=== PATIENT | female | born 1950 | race African-American/Black ===

== ENCOUNTER 2018-12-22 13:57 | Emergency (ER) | payer MEDICARE | END 2018-12-22 14:50 | disposition home or self-care (01) | LOC: SCSER 13:57 | DX: R20.0 Anesthesia of skin (principal); M79.652 Pain in left thigh; E78.5 Hyperlipidemia, unspecified; E78.00 Pure hypercholesterolemia, unspecified; I10 Essential (primary) hypertension; Z79.899 Other long term (current) drug therapy; Z79.82 Long term (current) use of aspirin | CPT/HCPCS: 99283 ==

== ENCOUNTER 2022-12-26 11:36 | Observation (INO) | payer MEDICARE ==
[2022-12-26] MEDS ORDERED: Ondansetron PF 4 MG/2 ML Vial ONE (12:13)
[2022-12-26 12:39] LABS: #Eosinphils 0.1 thou/uL (0.0-0.7); #Monocytes 0.4 thou/uL (0.11-0.59); #Neutrophils 6.8 thou/uL (1.40-6.50); %Basophils 0.4 % (0.0-1.0); %Eosinophils 0.7 % (0.0-10.0); %Lymphocytes 10.8 % (21.0-51.0); %Monocytes 5.3 % (0.0-10.0); %Neutrophils 82.4 % (42.0-75.0); Hematocrit 35.9 % (36.0-47.0); Hemoglobin 12.3 g/dL (12.0-16.0); Mean Corpuscular HGB CONC 34.3 g/dL (32.0-36.0); Mean Corpuscular Hemoglobin 27.3 pg (27.0-31.0); Mean Corpuscular Volume 79.6 fl (78.0-98.0); Mean Platelet Volume 10.7 fL (7.4-10.4); Platelet Count 183 10x3/uL (130-400); RBC Distribution Width 14.6 % (11.5-14.5); Red Blood Cell (RBC) Count 4.51 mill/uL (4.20-5.40); White Blood Cell (WBC) Count 8.2 10x3/uL (4.8-10.8)
[2022-12-26 13:02] LABS: ALT (SGPT) 8 U/L (8-55); AST (SGOT) 18 U/L (5-34); Alkaline Phosphatase 66 U/L (40-110); Anion Gap 10 mmol/L (10-20); BUN (Urea Nitrogen) 15 mg/dL (9.8-20.1); Bilirubin, Total 0.7 mg/dL (0.2-1.2); Calc. Creatinine Clearance 0 mL/min (70-130); Calcium 9.7 mg/dL (7.8-10.44); Carbon Dioxide 31 mmol/L (23-31); Chloride 101 mmol/L (98-107); Estimated GFR 71; Globulin 3.9 g/dL (2.4-3.5); Glucose 94 mg/dL (83-110); Lipase 35 U/L (8-78); Potassium 3.6 mmol/L (3.5-5.1); Protein, Total 7.9 g/dL (5.8-8.1); Sodium 138 mmol/L (136-145)
[2022-12-26 13:04] LABS: Troponin I 0.013 ng/mL (< 0.028)
[2022-12-26 13:48] LABS: Bacteria/HPF 1+ HPF (None Seen); Bilirubin Negative (Negative); Blood, Urine Negative (Negative); CAUTI Indications for Culture Dysuria,urgency,freq; Clarity Turbid (Clear); Glucose, Urine (Dipstick) Normal (Negative); Ketone, Urine Negative (Negative); Leukocyte 75 Leu/uL (Negative); Nitrite Negative (Negative); Protein, Urine (Dipstick) 10 mg/dL (Neg-Trace); RBC/HPF 0-3 HPF (0-3); Specific Gravity, Urine 1.013 (1.002-1.036); Urobilinogen Normal mg/dL (Less than 2); WBC/HPF 0-3 HPF (0-3); pH, Urine 5.5 (5.0-9.0)
[2022-12-26 13:49] LABS: Urine Culture Reflex No No
[2022-12-26] MEDS ORDERED: cefTRIAXone (ROCEPHIN) 2 GM VIAL ONE (15:33)
[2022-12-26] MEDS ORDERED: Iopamidol-370 76% 500 ML MDV (1 ML CHARGE) ONE (15:54)
[2022-12-26] MEDS ORDERED: Acetaminophen 650 MG Suppository PR PRN (16:43)
[2022-12-26] MEDS ORDERED: Acetaminophen 325 MG TAB PO PRN (16:43)
[2022-12-26] MEDS ORDERED: Ondansetron ODT 4 MG TAB PO PRN (16:43)
[2022-12-26] MEDS ORDERED: Ondansetron PF 4 MG/2 ML Vial IVP PRN (16:43)
[2022-12-26 22:55] VITALS: BMI 25.4
[2022-12-27 07:53] LABS: #Eosinphils 0.2 thou/uL (0.0-0.7); #Monocytes 0.8 thou/uL (0.11-0.59); #Neutrophils 4.7 thou/uL (1.40-6.50); %Basophils 0.5 % (0.0-1.0); %Lymphocytes 24.6 % (21.0-51.0); %Monocytes 10.2 % (0.0-10.0); %Neutrophils 61.1 % (42.0-75.0); Hematocrit 35.3 % (36.0-47.0); Hemoglobin 12.2 g/dL (12.0-16.0); Mean Corpuscular HGB CONC 34.6 g/dL (32.0-36.0); Mean Corpuscular Hemoglobin 27.5 pg (27.0-31.0); Mean Corpuscular Volume 79.5 fl (78.0-98.0); Mean Platelet Volume 10.7 fL (7.4-10.4); Platelet Count 163 10x3/uL (130-400); RBC Distribution Width 14.8 % (11.5-14.5); Red Blood Cell (RBC) Count 4.44 mill/uL (4.20-5.40); White Blood Cell (WBC) Count 7.7 10x3/uL (4.8-10.8)
[2022-12-27] MEDS ORDERED: traMADol HCl 50 MG TAB PO PRN (08:04)
[2022-12-27] MEDS ORDERED: Albuterol 200 PUFF (6.7GM INHALER) INH PRN (08:04)
[2022-12-27 08:05] LABS: Anion Gap 14 mmol/L (10-20); BUN (Urea Nitrogen) 14 mg/dL (9.8-20.1); Calc. Creatinine Clearance 57 mL/min (70-130); Calcium 9.3 mg/dL (7.8-10.44); Carbon Dioxide 30 mmol/L (23-31); Chloride 104 mmol/L (98-107); Estimated GFR 70; Glucose 86 mg/dL (83-110); Potassium 3.6 mmol/L (3.5-5.1); Sodium 144 mmol/L (136-145)
[2022-12-27] MEDS ORDERED: Mometasone 200 MCG/Formoterol 5 MCG 120 PUFF INHALER INH SCH ×2 (08:15→18:30)
[2022-12-27] MEDS ORDERED: Escitalopram Oxalate 10 mg Tablet PO SCH (09:00)
[2022-12-27] MEDS ORDERED: PROPOFOL 200 MG/20 ML VIAL ONE (13:30)
[2022-12-27 16:55] VITALS: BP 135/68; TEMP 98.1
[2022-12-27] MEDS ORDERED: Gabapentin 100 MG CAP PO SCH (21:00)
== END 2022-12-27 17:26 | disposition home or self-care (01) ==
LOC: ERS 11:36 → ERHOLD 16:44 → T4-B 19:12
PROVIDERS: ADMIT Family Medicine; ATTEND Internal Medicine
DX: K31.9 Disease of stomach and duodenum, unspecified (principal); I10 Essential (primary) hypertension; E78.5 Hyperlipidemia, unspecified; C50.919 Malignant neoplasm of unspecified site of unspecified female breast; Z79.899 Other long term (current) drug therapy; Z90.49 Acquired absence of other specified parts of digestive tract; Z90.710 Acquired absence of both cervix and uterus
CPT/HCPCS: 71045; 74177; 80048; 80053; 81001; 82962 ×2; 83690; 84484; 85025 ×2; 93005; 96365; 96375; 99285; G0378 ×3; 36415; 36416; J0696; J2405; J2704; Q9967

== ENCOUNTER 2025-03-11 09:00 | Outpatient (CLI) | payer MEDICARE | END 2025-03-11 09:01 | disposition home or self-care (01) | LOC: ULT 09:00 | PROVIDERS: ATTEND Internal Medicine | DX: R14.0 Abdominal distension (gaseous) (principal); K86.89 Other specified diseases of pancreas; N28.1 Cyst of kidney, acquired; Z90.49 Acquired absence of other specified parts of digestive tract | CPT/HCPCS: 76700 ==